=== PATIENT | male | born 1985 | race Caucasian/White ===

== ENCOUNTER 2017-05-08 05:36 | Emergency (ER) | payer OTHER ==
[~2017-05-08] VITALS: Ht 180.3 cm; Wt 72.7 kg
[~2017-05-08 05:36] MED LIST: BIAXIN 500MG T500 MG PO; FLONASE NASAL S16 GM NS; INVANZ INJ1 G/VIAL IV; NORCO 325 MG-51 TAB PO; SALINE NASAL SP45 ML NS
[2017-05-08 05:37] VITALS: TEMP 98
[2017-05-08] MEDS ORDERED: ABSORICA PO (05:39)
[2017-05-08] MEDS ORDERED: NORCO 325 MG-51 TAB PO (05:56)
[2017-05-08] MEDS ORDERED: CLEOCIN HCL300 MG PO (05:56)
[2017-05-08 07:40] VITALS: BP 122/83; PULSE 66
== END 2017-05-08 07:42 | disposition home or self-care (01) ==
LOC: COL.ER 05:36
DX: K04.7 Periapical abscess without sinus (principal); K03.81 Cracked tooth